=== PATIENT | female | born 1950 | race Caucasian/White ===

== ENCOUNTER → 2016-11-19 | Outpatient (CLI) | payer MEDICAID, MEDICARE ==
[~2016-11-19] MED LIST: CLON1 PO; CONC54TA4 PO; EFFE150C PO; PRIN10TA PO; VENL25TA14 PO
--- NOTE | 2016-11-19 23:16 | RADRPT ---
EXAM DATE/TIME: 11/19/2016 13:48 [place] COMPARISON: No previous studies available for comparison. INDICATIONS : Tremors. DOSE: 5.7 mCi Ioflupane Iodine-123 in 2.5 ml total volume MEDICATION(S): 130 mg Potasium Iodine PO one hour prior to injection SPECT IMAGIN.5 Hrs. RADIATION DOSE: 30.27 CTDIvol (mGy) MEDICAL HISTORY : Carcinoma, breast. SURGICAL HISTORY : Mastectomy, left. ENCOUNTER: Initial ACUITY: 1 day PAIN SCALE: 0/10 LOCATION: cranial TECHNIQUE: SPECT imaging of the brain was performed in sagittal, axial and coronal planes. Attenuation correctio n was performed with computed tomography and both the attenuation correction and non-attenuation marah ected data sets were reviewed. FINDINGS: Examination is abnormal demonstrating absent uptake in the right putamen, decreased uptake in the lef t putamen and asymmetric uptake in the head of caudate nucleus. There is symmetric uptake in the bod y of the caudate nucleus. 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 José Miguel Rice MD on November 19, 2016 at 23:02 Board Certified Radiologist. This report was verified electronically.
== END ==
LOC: HRAD 09:21
PROVIDERS: ATTEND Specialist
DX: R25.1 Tremor, unspecified (principal)
CPT/HCPCS: 78607; A9584